=== PATIENT | female | born 1955 | race Native Hawaiian/Other Pacific Islander ===

== ENCOUNTER 2017-09-20 11:02 | Outpatient (CLI) | payer BC ==
[~2017-09-20 11:02] MED LIST: DULO60CA2 OR; METF100038 OR; ROSU10TA PO; VICTOZA18 MG/3 ML SC; VIMOVO1 TA1 OR
== END 2017-09-20 22:49 | disposition home or self-care (01) ==
LOC: RAD 11:02
DX: M54.12 Radiculopathy, cervical region (principal)

== ENCOUNTER 2019-02-08 09:06 | Outpatient (CLI) | payer OTHER | END 2019-02-08 20:05 | disposition home or self-care (01) | LOC: MAMMO 09:06 | DX: Z12.31 Encounter for screening mammogram for malignant neoplasm of breast (principal) ==

== ENCOUNTER 2019-05-27 09:23 | Outpatient (CLI) | payer OTHER ==
[2019-05-27 10:00] LABS: PLATELET COUNT 164 K/uL (152-353)
[2019-05-27 10:14] LABS: POTASSIUM 4.2 mmol/L (3.6-5.2)
== END 2019-05-27 20:48 | disposition home or self-care (01) ==
LOC: LAB 09:23
PROVIDERS: Physician Assistant
DX: I10 Essential (primary) hypertension (principal); E11.9 Type 2 diabetes mellitus without complications
CPT/HCPCS: 36415; 80053; 80061; 82306; 83036; 84439; 85027

== ENCOUNTER 2020-06-19 13:02 | Outpatient (CLI) | payer OTHER | END 2020-06-19 23:57 | disposition home or self-care (01) | LOC: INF 13:02 | PROVIDERS: ATTEND Internal Medicine | DX: Z23 Encounter for immunization (principal) | CPT/HCPCS: 96372 ==

== ENCOUNTER 2020-07-17 12:51 | Outpatient (CLI) | payer OTHER | END 2020-07-17 22:00 | disposition home or self-care (01) | LOC: INF 12:51 | PROVIDERS: ATTEND Internal Medicine | DX: Z23 Encounter for immunization (principal) | CPT/HCPCS: 96372 ==

== ENCOUNTER 2020-12-17 08:11 | Outpatient (CLI) | payer OTHER ==
[2020-12-17 08:35] LABS: PLATELET COUNT 149 K/uL (152-353)
[2020-12-17 08:52] LABS: POTASSIUM 4.8 mmol/L (3.6-5.2)
== END 2020-12-17 21:32 | disposition home or self-care (01) ==
LOC: LABW 08:11
PROVIDERS: ATTEND Internal Medicine
DX: E11.9 Type 2 diabetes mellitus without complications (principal); E55.9 Vitamin D deficiency, unspecified
CPT/HCPCS: 36415; 80053; 80061; 81000; 82043; 82306; 82570; 83036; 84439; 84443; 85027

== ENCOUNTER 2021-05-15 15:30 | Outpatient (CLI) | payer OTHER | END 2021-05-15 18:00 | disposition home or self-care (01) | LOC: INF 15:30 | PROVIDERS: ATTEND Internal Medicine Endocrinology, Diabetes & Metabolism | DX: Z23 Encounter for immunization (principal) ==

== ENCOUNTER 2022-03-05 16:42 | Outpatient (CLI) | payer OTHER | END 2022-03-05 19:18 | disposition home or self-care (01) | LOC: RAD 16:42 | PROVIDERS: ATTEND Internal Medicine | DX: M54.59 Other low back pain (principal); R80.8 Other proteinuria ==

== ENCOUNTER 2022-03-11 10:29 | Outpatient (CLI) | payer OTHER | END 2022-03-11 19:32 | disposition home or self-care (01) | LOC: US 10:29 | PROVIDERS: ATTEND Internal Medicine | DX: R80.8 Other proteinuria (principal) ==

== ENCOUNTER 2022-05-20 14:14 | Outpatient (CLI) | payer OTHER | END 2022-05-20 20:15 | disposition home or self-care (01) | LOC: MRI 14:14 | PROVIDERS: ATTEND Orthopaedic Surgery | DX: M54.59 Other low back pain (principal); M51.36 Other intervertebral disc degeneration, lumbar region; M46.1 Sacroiliitis, not elsewhere classified; M48.062 Spinal stenosis, lumbar region with neurogenic claudication; M54.16 Radiculopathy, lumbar region ==

== ENCOUNTER 2022-08-26 09:25 | Outpatient (CLI) | payer OTHER | END 2022-08-26 19:19 | disposition home or self-care (01) | LOC: CT 09:25 | PROVIDERS: ATTEND Internal Medicine | DX: R10.12 Left upper quadrant pain (principal) | CPT/HCPCS: 36415; 82565; 84520; Q9963 ==

== ENCOUNTER 2022-10-14 13:21 | Outpatient (CLI) | payer OTHER | END 2022-10-14 20:41 | disposition home or self-care (01) | LOC: MAMMO 13:21 | PROVIDERS: ATTEND Internal Medicine | DX: Z12.31 Encounter for screening mammogram for malignant neoplasm of breast (principal) ==